=== PATIENT | female | born 1970 | race Caucasian/White ===

== ENCOUNTER 2019-01-03 11:23 | Emergency (ER) | payer OTHER ==
[~2019-01-03] VITALS: Ht 162.6 cm; Wt 80.1 kg
[2019-01-03 11:25] VITALS: RESP 18; Ht 162.6 cm; Wt 80.1 kg
[2019-01-03] MEDS ORDERED: ACETAMINOPHEN 500 MG TAB PO STA (12:22)
[2019-01-03 13:49] VITALS: BP 154/88; PULSE 88
[2019-01-03] MEDS ORDERED: AMLO5TAB4 PO (13:50)
--- NOTE | 2019-01-03 14:02 | ERD ---
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 Patient states she moved here from [facility] in April 2018. Since that time she has not a primary care physician. She states she ran out of her blood pressure medication 2 weeks ago. Patient does not know the names of her blood pressure medications. Patient describes her headache to be in the posterior aspect of her head in the bilateral temporal regions. She denies any numbness or tingling. Patient denies any visual changes. Patient denies any nausea or vomiting. Patient denies any chest pain, shortness of breath, urinary symptoms abdominal pain or urinary symptoms. Patient denies any LOC. Patient denies any unilateral weakness, slurred speech, difficulty and bleeding. ROS All systems reviewed and are negative except as per history of present illness. Medications Home Meds Active Scripts Amlodipine Besylate* (Norvasc*) 5 Mg Tablet, 5 MG PO DAILY, #30 TAB Prov:WILLIE DIA PA-C 01/03/19 PMhx/Soc Medical and Surgical Hx: pt denies Medical Hx, pt denies Surgical Hx Hx Alcohol Use: No Hx Substance Use: No Hx Tobacco Use: No Smoking Status: Never smoker FmHx Family History: No diabetes Physical Exam Vitals Vital Signs Date Temp Pulse Resp B/P (MAP) Pulse Ox O2 O2 Flow FiO2 Time Delivery Rate 01/03/19 88 154/88 13:49 (110) 01/03/19 98.8 92 18 172/97 99 11:25 (122) Physical Exam GENERAL: Well-developed, well-nourished female. Appears in no acute distress. Speaking in full sentences.. HEAD: Normocephalic, atraumatic. EYES: Pupils are equally reactive bilaterally. EOMs grossly intact. No conjunctival erythema. ENT: Moist mucous membranes. No uvula deviation. No kissing tonsils. NECK: Supple. No meningismus. Normal range of motion of the neck. LUNG: Clear to auscultation bilaterally. No rhonchi, wheezing, rales or coarse breath sounds. HEART: Regular rate and rhythm. No murmurs, rubs or gallops. Equal pulses noted in bilateral upper extremities. EXTREMITIES: Equal pulses bilaterally. No peripheral clubbing, cyanosis or edema. No unilateral leg swelling. NEUROLOGIC: Alert and oriented x3, cooperative. Mood and affect appropriate to situation. Cranial nerves II through XII are grossly intact. Mild asymmetric smile noted on the right side. 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 Normal speech. Motor exam: 5/5 strength in upper and lower extremities. Sensory exam: Sensation intact to light touch on all four extremities. Cerebellar function exam: Rapid alternating movements intact. No dysmetria on [id number]-[id number] and ctho-hs-wjzl test. Steady gait. No pronator drift. SKIN: Normal color. Warm and dry. No rashes or lesions. Result Diagram: 01/03/19 1235 01/03/19 1235 Results 24 hrs Laboratory Tests Test 01/03/19 12:35 01/03/19 12:36 White Blood Count 4.8 10^3/ul Red Blood Count 5.99 10^6/ul Hemoglobin 12.9 g/dl Hematocrit 42.4 % Mean Corpuscular Volume 70.8 fl Mean Corpuscular Hemoglobin 21.5 pg Mean Corpuscular Hemoglobin Concent 30.4 g/dl Red Cell Distribution Width 14.3 % Platelet Count 273 10^3/UL Mean Platelet Volume 11.0 fl Immature Granulocytes % 0.400 % Neutrophils % 42.0 % Lymphocytes % 47.1 % Monocytes % 9.7 % Eosinophils % 0.6 % Basophils % 0.2 % Nucleated Red Blood Cells % 0.0 /100WBC Immature Granulocytes # 0.020 10^3/ul Neutrophils # 2.0 10^3/ul Lymphocytes # 2.3 10^3/ul Monocytes # 0.5 10^3/ul Eosinophils # 0.0 10^3/ul Basophils # 0.0 10^3/ul Nucleated Red Blood Cells # 0.0 10^3/ul Bedside Urine pH (LAB) 5.5 Bedside Urine Protein (LAB) Negative Bedside Urine Glucose (UA) Negative Bedside Urine Ketones (LAB) Negative Bedside Urine Blood Trace-lysed Bedside Urine Nitrite (LAB) Negative Bedside Urine Leukocyte Esterase (L Negative Sodium Level 142 mmol/L Potassium Level 3.8 mmol/L Chloride Level 104 mmol/L Carbon Dioxide Level 28 mmol/L Anion Gap 10 Blood Urea Nitrogen 9 mg/dl Creatinine 0.65 mg/dl Est Glomerular Filtrat Rate mL/min > 60 mL/min Glucose Level 123 mg/dl Calcium Level 10.1 mg/dl Total Bilirubin 0.2 mg/dl Direct Bilirubin 0.00 mg/dl Indirect Bilirubin 0.2 mg/dl Aspartate Amino Transf (AST/SGOT) 32 IU/L Alanine Aminotransferase (ALT/SGPT) 22 IU/L Alkaline Phosphatase 85 IU/L Total Protein 8.4 g/dl Albumin 4.6 g/dl Globulin 3.80 g/dl Albumin/Globulin Ratio 1.21 POC Beta HCG, Qualitative NEGATIVE Current Medications Medications Dose Sig/Sami Start Time Status Last (Trade) Ordered Route PRN Stop Time Admin Dose Reason Admin 1,000 mg ONCE STAT 01/03/19 DC 01/03/19 Acetaminophen PO 12:22 12:32 (Tylenol 01/03/19 12:24 Tab) Procedures/MDM ED COURSE: The patient was stable throughout ED course. I kept the patient and/or family informed of laboratory and diagnostic imaging results throughout the ED course. DIAGNOSTIC IMAGING: Read by radiologist. Patient: ASHLEY MCCLENDON : 1970 Age: 48 Sex: F MR #: [id number] DOS: 01/03/19 1222 Ordering MD: WILLIE DIA PA-C Location: [facility] Room/Bed: PROCEDURE: CT Brain without contrast. CLINICAL INDICATION: Headache. Hypertension. TECHNIQUE: A CT of the brain was performed on a multidetector CT scanner utilizing axial imaging from the skull base through the vertex without IV contrast. Multiplanar reformatted images were made. Images were reviewed on a PACS workstation. The CTDIvol is 40 mGy and the DLP is a 634 mGycm. DICOM images are available. One or more of the following dose reduction techniques were utilized: 1.) Automated exposure control 2.) Adjustment of the mA +/- kV according to patient's size 3.) Use of iterative reconstruction technique. COMPARISON: None FINDINGS: There is no intracranial hemorrhage, mass effect, or midline shift. No extra- axial fluid collection is seen. The ventricles and sulci are normal in size and configuration. The density of the brain is normal, and the sandy white matter differentiation appears well-preserved. The visualized paranasal sinuses and osseous structures are grossly unremarkable. IMPRESSION: 1. No evidence of acute intracranial pathology. 2. The brain is normal in appearance. .Karlos Leija MD, MD Date Time Electronically viewed and signed by .Karlos Leija MD, on 01/03/2019 13:16 .A/ CC: WILLIE DIA PA-C [id number] PROCEDURES: None. MEDICATIONS GIVEN: Tylenol Patient tolerated medication well with no adverse reactions. Patient reported improvement in pain. 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 Vital signs were reviewed. Patient was afebrile. Patient is not hypoxic. Patient denied any fevers, neck stiffness, jaw claudication, visual changes or LOC. 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 Case discussed with supervising physician Dr. Dougherty, who advised me to order blood work as well as CT imaging of the head. CBC showed no evidence of sy stemic infection or severe anemia. CMP showed no evidence of electrolyte abnormalities, severe acidosis, alkalosis, renal failure, or liver disease. UA showed no evidence of acute infection or hematuria. CT imaging was unremarkable. See formal report above. Repeat blood pressure was noted to be 154/88. She reported improvement in pain after taking Tylenol. Patient will be started on Norvasc per recommendations of Dr. Dougherty at this time, the patient's presentation is most consistent with hea jennifer and and given information for primary care physicians in her local community. Patient advised to follow-up with primary care physician. At this time the patient presentation was consistent with headache and hypertension. Low suspicion for intracranial hemorrhage, meningitis, encephalitis, CO poisoning, temporal arteritis, benign intracranial hypertension, intracranial mass, glaucoma, preeclampsia, sinusitis, tension headache, migraine headache, cluster headache. Patient was nontoxic, non- opening prior to discharge. PRESCRIPTIONS: Norvasc DISCHARGE: At this time, patient is stable for discharge and outpatient management. I have encouraged the patient to hydrate well. I have instructed the patient to follow- up with his/her primary care physician in 1-2 days. If symptoms persist, patient may need to see a specialist for further examinations and testing. I have instructed the patient to promptly return to the ER at any time for any new or worsening symptoms including increased increased pain, fever, nausea, vomiting, numbness, neck stiffness, visual changes, weakness or LOC. The patient and/or family expressed understanding of and agreement with this plan. All questions we re answered. Home care instructions were provided. Disclaimer: Inadvertent spelling and grammatical errors are likely due to EHR/dictation software use and do not reflect on the overall quality of patient care. Also, please note that the electronic time recorded on this note does not necessarily reflect the actual time of the patient encounter. Departure Diagnosis: Primary Impression: Hypertension Hypertension type: unspecified Qualified Codes: I10 - Essential (primary) hypertension Additional Impression: Headache Headache type: unspecified Headache chronicity pattern: unspecified pattern Intractability: not intractable Qualified Codes: R51 - Headache Condition: Fair Patient Instructions: Self-Care for Headaches, High Blood Pressure (Hypertension) Referrals: [facility] YOU HAVE RECEIVED A MEDICAL SCREENING EXAM AND THE RESULTS INDICATE THAT YOU DO NOT HAVE A CONDITION THAT REQUIRES URGENT TREATMENT IN THE EMERGENCY DEPARTMENT. FURTHER EVALUATION AND TREATMENT OF YOUR CONDITION CAN WAIT UNTIL YOU ARE SEEN IN YOUR DOCTORS OFFICE WITHIN THE NEXT 1-2 DAYS. IT IS YOUR RESPONSIBILITY TO MAKE AN APPOINTMENT FOR FOLOW-UP CARE. IF YOU HAVE A PRIMARY DOCTOR --you should call your primary doctor and schedule an appointment IF YOU DO NOT HAVE A PRIMARY DOCTOR YOU CAN CALL OUR PHYSICIAN REFERRAL HOTLINE AT IF YOU CAN NOT AFFORD TO SEE A PHYSICIAN YOU CAN CHOSE FROM THE FOLLOWING [facility] [address] [facility] [address] [facility] [address] [facility] [address] [facility]. [facility] [address] [facility]. [facility] YOU HAVE RECEIVED A MEDICAL SCREENING EXAM AND THE RESULTS INDICATE THAT YOU DO NOT HAVE A CONDITION THAT REQUIRES URGENT TREATMENT IN THE EMERGENCY DEPARTMENT. FURTHER EVALUATION AND TREATMENT OF YOUR CONDITION CAN WAIT UNTIL YOU ARE SEEN IN YOUR DOCTORS OFFICE WITHIN THE NEXT 1-2 DAYS. IT IS YOUR RESPONSIBILITY TO MAKE AN APPOINTMENT FOR FOLOW-UP CARE. IF YOU HAVE A PRIMARY DOCTOR --you should call your primary doctor and schedule and appointment IF YOU DO NOT HAVE A PRIMARY DOCTOR YOU CAN CALL OUR PHYSICIAN REFERRAL HOTLINE AT . IF YOU CAN NOT AFFORD TO SEE A PHYSICIAN YOU CAN CHOSE FROM THE FOLLOWING [facility] INSTITUTIONS: [facility] [id number] [place] [address] [facility] [address] [place], [place] [id number] [place] [address] [address] [place] [address] Additional Instructions: Call your primary care doctor TOMORROW for an appointment during the next 1-2 days.See the doctor sooner or return here if your condition worsens before your appointment time. WILLIE DIA PA-C Jan 03, 2019 14:02
== END 2019-01-03 14:13 | disposition home or self-care (01) ==
LOC: FTE 11:23
DX: I10 Essential (primary) hypertension (principal)
CPT/HCPCS: 70450; 80053; 81003; 81025; 85025; Z7502; Z7610